=== PATIENT | male | born 1950 | race Caucasian/White ===

== ENCOUNTER → 2019-01-12 12:09 | Outpatient (CLI) | payer MEDICARE, OTHER, SELFPAY ==
--- NOTE | 2019-01-12 | DI.MRI.S_ITS ---
PROCEDURE: MR CERVICAL SPINE WO CON INDICATIONS: Cervicalgia TECHNIQUE: Noncontrast sagittal T1 spin echo and T2 fast spin echo, sagittal STIR, foraminal oblique sagittal T2 fast spin echo, and axial gradient echo or T2 fast spin echo through the cervical spine. COMPARISON: None. FINDINGS: Image quality: Excellent. Alignment and Curvature: There is straightening and reversal of normal cervical lordosis centered at C4-5 level. Bone Marrow: There is no marrow edema. No acute compression fracture. Vertebral body heights are preserved. Spinal Cord: Visualized spinal cord has normal size and signal. No cerebellar tonsillar herniation. Paraspinous Soft Tissues: No paravertebral masses. Prevertebral soft tissues are normal in thickness. C2-C3: Normal appearance. C3-C4: Decrease intervertebral disc space and degenerative endplate changes are seen. Broad-based disc bulge and bilateral uncinate hypertrophic changes are seen causing mild central canal stenosis and left-sided neural foraminal narrowing. There is likely compression of exiting left C4 nerve root. C4-C5: Near-complete loss of intervertebral disc space and degenerative endplate changes are seen. Broad-based disc bulge and bilateral uncinate hypertrophic changes are noted causing pmcd-[id number] central canal stenosis and bilateral neuroforaminal narrowing. There is likely compression of bilateral exiting C5 nerve roots. C5-C6: There is loss of intervertebral disc space and degenerative endplate changes. Diffuse disc bulge and bilateral facet hypertrophic changes are seen causing moderate to severe central canal stenosis and left worse than right bilateral neuroforaminal narrowing. There is likely compression of bilateral exiting C6 nerve roots. C6-C7: The decrease intervertebral disc space and degenerative endplate changes are noted. There is diffuse disc bulge and bilateral facet hypertrophic changes causing moderate to severe central canal stenosis and right worse than left bilateral neuroforaminal narrowing. There is likely compression of bilateral exiting C7 nerve roots. C7-T1: Normal appearance. IMPRESSION: 1. Degenerative disc bulge and bilateral facet hypertrophic changes throughout the cervical spine causing moderate to severe central canal stenosis and bilateral neuroforaminal narrowing as described above most prominent at C5-6 level. 2. No acute compression fracture or traumatic spondylolisthesis. 3. No abnormal cervical spinal cord signal. Dictated by: Tonny Montgomery M.D. on 01/12/2019 at 13:41 Approved by: Tonny Montgomery M.D. on 01/12/2019 at 13:44
== END ==
PROVIDERS: PCP Family Medicine; Visit Provider Family Medicine
DX: M50.31 Other cervical disc degeneration, high cervical region (principal); M48.02 Spinal stenosis, cervical region
CPT/HCPCS: 72141

== ENCOUNTER → 2020-09-05 11:16 | Outpatient (CLI) | payer MEDICARE, OTHER, SELFPAY ==
--- NOTE | 2020-09-05 | DI.MRI.S_ITS ---
PROCEDURE: MR LUMBAR SPINE WO/W CON INDICATIONS: Other spondylosis with radiculopathy, lumbar region TECHNIQUE: Noncontrast sagittal T1 spin echo and T2 fast spin echo, sagittal STIR, axial T1 and T2 fast spin echo through the lumbar spine. In cases with scoliosis, additional coronal T2 fast spin echo may be performed. After the administration of contrast, sagittal and axial T1 spin echo with fat saturation through the lumbar spine. COMPARISON: [facility], MR, L-SPINE WITH AND WITHOUT CONTR, 04/10/2010, 13:39. FINDINGS: Image quality: This examination is limited by involuntary motion artifact. Alignment and curvature: There is minimal retrolisthesis seen at the L1-L2 level, the L3-L4 level, and the L4-L5 level. Svzc-xb-fbanpqea levoconvex lumbar scoliosis is seen. Marrow: Marrow is of normal overall signal. No acute vertebral body compression fractures. No suspicious marrow enhancement. Spinal cord: Conus medullaris terminates at the L1 level. Visualized spinal cord demonstrates normal signal, without suspicious enhancement. Paraspinous soft tissues: No paravertebral masses or abnormal enhancement. T12-L1: Mild to moderate loss of disc height is seen. Loss of disc signal is seen. No significant neural foraminal or central canal narrowing can be seen. L1-L2: Moderate loss of disc height is seen. Loss of disc signal is seen. There is moderate disc bulge seen, with a central/right disc extrusion, with inferior migration of the disc material. The disc extrusion is well seen on series 4, image 7. Mild to moderate facet hypertrophy is seen. Moderate bilateral neural foraminal narrowing can be seen, right worse than left. Moderate to severe central canal narrowing is seen at this level, as on series 6, image 14. L2-L3: [id number] loss of disc height and disc signal can be seen. At least moderate disc bulge is seen. There is a central disc protrusion. There is at least moderate bilateral neural foraminal narrowing seen at this level. Moderate to severe central canal narrowing is also seen at this level, as on series 6, image 18. L3-L4: Lmfc-tt-xfyfhkjx loss of disc height and disc signal can be seen. There is a focal annular fissure seen posteriorly. Moderate generalized disc bulge is seen. There is a mild central disc protrusion. Moderate facet joint hypertrophy is seen. Moderate bilateral neural foraminal narrowing is seen. At least moderate central canal narrowing can be seen. L4-L5: Moderate to severe loss of disc height and disc signal can be seen. Reactive marrow endplate changes are seen, which demonstrate mixed T1 weighted and T2-weighted signal, and are attributed to a combination of edema and fatty metaplasia (Modic type I and Modic type II changes). Moderate disc bulge is seen, with a mild central disc protrusion. At least moderate facet hypertrophy is seen at this level. There is moderate to severe bilateral neural foraminal narrowing seen, right worse than left. There is compression seen upon the exiting nerve roots, right worse than left. Potential remote left hemilaminectomy change can be seen. Please correlate with known patient history. Mild central canal narrowing is seen. L5-S1: Mild loss of disc height is seen. Loss of disc signal is seen. There is a focal annular fissure seen posteriorly. Mild generalized disc bulge is seen. Mild facet joint hypertrophy is seen. No significant neural foraminal narrowing can be seen. Minimal central canal narrowing is seen. IMPRESSION: Multiple levels of lumbar spine degenerative change are seen, which are progressed compared to 2010. At the L1-L2 level, there is a central/right disc extrusion, with inferior migration of the disc material, with associated moderate to severe central canal narrowing. Moderate to severe central canal narrowing is also seen at the L2-L3 level. A degree of compression can be seen upon the exiting L4 nerve roots. Dictated by: Harry Seo M.D. on 09/05/2020 at 14:23 Approved by: Harry Seo M.D. on 09/05/2020 at 14:29
== END ==
PROVIDERS: PCP Family Medicine; Referring Provider Family Medicine; Visit Provider Family Medicine
DX: M47.26 Other spondylosis with radiculopathy, lumbar region (principal); M51.16 Intervertebral disc disorders with radiculopathy, lumbar region; M48.061 Spinal stenosis, lumbar region without neurogenic claudication
CPT/HCPCS: 72158

== ENCOUNTER 2025-02-18 13:33 | Outpatient (CLI) | payer MEDICARE, OTHER, SELFPAY ==
[2025-02-18] VITALS (8 sets, daily range): BP systolic 136–173; BP diastolic 75–95; PULSE 68–78; RESP 12–16; TEMP 36.4; O2SAT 96–99
[2025-02-18] MEDS: MIDAZOLAM 2 MG/2 ML VIAL IV ×2 (15:02→15:08)
[2025-02-18] MEDS: DEXAMETHASONE 10 MG/ML VIAL 20 MG INJ (15:10)
[2025-02-18] MEDS: BUPIVACAINE 0.25% (PF) VIAL 2 ML INJ (15:11)
[2025-02-18] MEDS: BETAMETHASONE 30 MG/5 ML MDV 12 MG INJ (15:11)
[2025-02-18] MEDS: BETAMETHASONE 30 MG/5 ML MDV 6 MG INJ (15:12)
[2025-02-18] MEDS: LIDOCAINE 1% 20 ML INJ (15:12)
--- NOTE | 2025-02-18 15:21 | PM.PROC.IR.1 ---
Date/Time/Diagnoses Date of procedure: 02/18/25 Time of procedure: 15:21 Pre-procedure diagnosis: 1. FORAMINAL STENOSIS WITH LE SYMPTOMS Procedure Notes Procedure: 1. FLUOROSCOPICALLY GUIDED CONTRAST CONTROLLED TRANSFORAMINAL EPIDURAL STEROID INJECTION - BILATERAL L4/5 TFESI Indications: Tan is referred by Dr. Skaggs for treatment of Foraminal Stenosis with bilateral LE Symptoms Physician: Saud Flores Total Fluoroscopy time (seconds): 15 Total sedation minutes: 15 Complications: none Procedure in detail & Post-procedure care: FINDINGS Foraminal Nerve Root Compression secondary to disc disease and facet hypertrophy DESCRIPTION OF PROCEDURE Following review of allergy and review of potential side effects and complications, including, but not necessarily limited to, infection, allergic reaction, local tissue breakdown, stroke, temporary or permanent nerve injury, paralysis, and possible , the patient indicated that the patient understood and agreed to proceed. An informed consent document was signed by the patient, witnessed by a nurse, and placed in the patient's chart. Additionally, other treatment options including medications, modalities, and physical therapy were reviewed with the patient. After review of previous anaesthesic history and IV conscious sedation the patient was deemed safe to proceed with today?s procedure with IV conscious sedation as ASA class II designation. Safety time-out was performed to confirm patient ID, procedure to be performed and site of procedure. IV sedation was accomplished with a combination of 4mg of Versed was administered by the RN after DO order, titrated to patient comfort during the course of the procedure while the patient remained responsive to all verbal commands In the prone position following sterile prep and drape of the lumbar region, the right L4/5 posterior neuroforamen was identified fluoroscopically. The skin was anesthetized via a 25-gauge 1.5-inch needle with 1% lidocaine solution. At this point, a 25-gauge 3.5-inch spinal needle was atraumatically introduced and advanced under fluoroscopic guidance through the posterior right L4/5 neuroforamen to approximately the anterior aspect of the canal. Depth was confirmed on lateral view. Following negative aspiration, injection of approximately 1.5cc of Isovue 200 under live fluoroscopy in the AP view confirmed excellent flow along the nerve root, into the epidural space without vascular or intrathecal uptake observed Radiological data, including multiple fluoroscopic views of the lumbosacral spine, reveal a spinal needle at the right L4/5 posterior neuroforamen. Subsequent views show flow of contrast material flowing superiorly and inferiorly along the nerve root confirming epidural flow. Subsequently, a test dose of 1.5cc of 1% lidocaine solution was administered and patient was observed for two minutes for signs or symptoms of complications, including abdominal pain, shortness of breath, bilateral upper or lower extremity weakness, nausea and vomiting, prior to steroid injection. At this point, a total of 2cc or 10mg of dexamethasone and 6mg betamethasone was injected without incident. Attention was then refocused to the left L4/5 level where the identical procedure was replicated. The procedure tolerated the procedure well without signs or symptoms of complications prior to transfer to the recovery area continued monitoring without incident. The patient was then transferred to the recovery area where they were observed for an appropriate time after the injection. The patient reported a VAS score of 7 prior to the procedure and a post-procedure VAS of 0. POST OP INSTRUCTIONS The patient was provided a Pain Log to continue to record their response to the target-specific procedure prior to follow-up visit with their referring physician. Additionally, specific post-injection care instructions and a contact number to our office were provided if concerns arise regarding possible complications associated with the procedure are suspected.
== END 2025-02-18 14:30 | disposition home or self-care (01) ==
LOC: RAD 13:33
PROVIDERS: PCP Family Medicine; Referring Provider Physical Medicine & Rehabilitation; Visit Provider Physical Medicine & Rehabilitation
DX: M48.061 Spinal stenosis, lumbar region without neurogenic claudication (principal); M51.16 Intervertebral disc disorders with radiculopathy, lumbar region; M47.26 Other spondylosis with radiculopathy, lumbar region
CPT/HCPCS: 64483; 99152; J0702; J1100; J2250

== ENCOUNTER 2025-05-04 10:18 | Outpatient (CLI) | payer MEDICARE, OTHER, SELFPAY ==
[2025-05-04] VITALS (9 sets, daily range): BP systolic 136–171; BP diastolic 77–98; PULSE 73–80; RESP 14–22; TEMP 36.7; O2SAT 96–100
[2025-05-04] MEDS: MIDAZOLAM 2 MG/2 ML VIAL IV (11:15)
[2025-05-04] MEDS: LIDOCAINE 1% 20 ML 5 ML INJ (11:22)
--- NOTE | 2025-05-04 11:36 | PM.PROC.IR.1 ---
Date/Time/Diagnoses Date of procedure: 05/04/25 Time of procedure: 11:36 Pre-procedure diagnosis: 1. FACET ARTHROPATHY Post-procedure diagnosis: same Procedure Notes Procedure: 1. BILATERAL- L4, L5 and S1 DIAGNOSTIC MB BLOCKS with LA Anesthetic Indications: Tna is referred by Dr. Skaggs for treatment of Bilateral Axial LBP. Physician: Saud Flores Total Fluoroscopy time (seconds): 10 Total sedation minutes: 15 Complications: none Procedure in detail & Post-procedure care: DESCRIPTION OF PROCEDURE Fluoroscopically guided, contrast-controlled bilateral L4, L5 and S1 medial branch blocks with 0.5cc of 0.5% Marcaine. Following review of allergy and review of potential side effects and complications, including, but not necessarily limited to, infection, allergic reaction, local tissue breakdown, nerve injury, paralysis, stroke and possible , the patient indicated that the patient understood and agreed to proceed. An informed consent document was signed by the patient, witnessed by a nurse, and placed in the patient's chart. After review of previous anaesthesic history and IV conscious sedation the patient was deemed safe to proceed with today's procedure with IV conscious sedation as ASA class II designation. Safety time-out was performed to confirm patient ID, procedure to be performed and site of procedure. IV sedation was accomplished with a combination of 2mg of Versed was administered by the RN after DO order, titrated to patient comfort during the course of the procedure while the patient remained responsive to all verbal commands In the prone position, following sterile prep and drape of the lumbar region, the right L4, L5 and S1 anatomical location of the medial branch of the dorsal ramus was identified fluoroscopically. Subsequently an anesthetic skin wheal using 1% lidocaine solution was initiated at each of the anatomical spots. Subsequently then a 22-gauge 3.5-inch spinal needle was atraumatically introduced and advanced under fluoroscopic guidance at each of the corresponding sites at the right L4, L5 and S1 MB. After negative aspiration, 0.2cc of Isovue 200 was injected, confirming placement without vascular or intrathecal uptake. Subsequently then 0.5cc of 0.5% Marcaine solution was injected at each of the corresponding sites at the right L4, L5 and S1 medial branch locations. The identical procedure was replicated on the left. The patient tolerated the procedure well without signs or symptoms of complications prior to transfer to the recovery area continued monitoring without incident. Post-procedure, the patient was monitored initiating provocative activities to measure the amount of relief from block of the facetogenic pain. The patient reported a VAS of 7 prior to the procedure and a post-procedure VAS of 1. It has been a pleasure to assist in the diagnostic and therapeutic care of your patient. POST OP INSTRUCTIONS The patient was provided with a Pain Log to complete over the next several hours and subsequent days prior to the patient's follow up with the ordering physician. If the patient has jewel bearing turner relief to the solution applied, then they may be a candidate for medial branch rhizotomy. The patient is aware, was provided, once again, with a Pain Log and will follow up with the referring physician for review and clinical correlation
== END 2025-05-04 11:45 | disposition home or self-care (01) ==
PROVIDERS: PCP Family Medicine; Referring Provider Physical Medicine & Rehabilitation; Visit Provider Physical Medicine & Rehabilitation
DX: M47.816 Spondylosis without myelopathy or radiculopathy, lumbar region (principal); M47.817 Spondylosis without myelopathy or radiculopathy, lumbosacral region
CPT/HCPCS: 64493; 64494; 99152; J2250